=== PATIENT | male | born 1985 | race Caucasian/White ===

== ENCOUNTER 2021-09-11 08:29 | Day surgery (SDC) | payer BC ==
[~2021-09-11] VITALS: Ht 167.6 cm; Wt 100.8 kg
[2021-09-11] MEDS ORDERED: BRINTELLIX20 (09:13)
[2021-09-11] MEDS ORDERED: PRIL40 PO (09:13)
[2021-09-11 10:50] VITALS: BP 138/78; PULSE 80; TEMP 97.6
--- NOTE | 2021-09-11 10:50 | NUR ---
PATIENT BROUGHT TO ROOM 9 VIA CART. ASSIST X 1 TO GET TO THE CHAIR. SIGNIFICANT OTHER AT BEDSIDE. PATIENT REQUESTS MUFFIN, JELLO, AND GRAPE JUICE TO DRINK.
[2021-09-11 11:05] VITALS: BP 100/83; PULSE 62
[2021-09-11 11:20] VITALS: BP 134/87; PULSE 60
--- NOTE | 2021-09-11 11:20 | NUR ---
PATIENT READY TO GET DRESSED, IV REMOVED.
--- NOTE | 2021-09-11 11:43 | NUR ---
PATIENT DONE SPEAKING WITH PHYSICIAN. ASKS HOW SOON HE CAN LEAVE. HE TOLERATED EATING AND DRINKING WELL.
[2021-09-11 15:41] VITALS: BP 138/78; PULSE 61; TEMP 97.7
== END 2021-09-11 11:34 | disposition home health service (06) ==
LOC: SDCO 08:29
DX: K29.30 Chronic superficial gastritis without bleeding (principal); K31.7 Polyp of stomach and duodenum; K21.00 Gastro-esophageal reflux disease with esophagitis, without bleeding; K62.5 Hemorrhage of anus and rectum; Z79.899 Other long term (current) drug therapy
CPT/HCPCS: J2704; J7120